=== PATIENT | female | born 1950 | race Caucasian/White ===

== ENCOUNTER 2018-06-25 12:23 | Outpatient (REF) | payer MEDICARE, SELFPAY ==
[2018-06-25 21:23] LABS: Anion Gap 10.3 mmol/L (3-11); BUN 18 mg/dL (7-18); CO2 27.7 mmol/L (21.0-32.0); CREATININE 0.99 mg/dL (0.55-1.02); Calcium 9.1 mg/dL (8.5-10.1); Chloride 98 mmol/L (98-107); Estimated GFR 55.61 (mL/min/1.73m2); Glucose 79 mg/dL (70-100); Potassium 4.3 mmol/L (3.5-5.1); Sodium 136 mmol/L (136-145); TSH (W/Ref FT4) 20.32 uIU/mL (0.358-3.74); Uric Acid 5.3 mg/dL (2.6-6.0)
[2018-06-25 21:49] LABS: FREE T4 1.03 ng/dL (0.76-1.46)
== END 2018-06-25 12:43 ==
LOC: NCHCN 12:23
PROVIDERS: PCP Family Medicine; Visit Provider Family Medicine
DX: I10 Essential (primary) hypertension (principal); E03.9 Hypothyroidism, unspecified
CPT/HCPCS: 80048; 84439; 84443; 84550

== ENCOUNTER 2018-08-06 20:23 | Outpatient (REF) | payer MEDICARE, OTHER, SELFPAY ==
[2018-08-06 21:08] LABS: TSH (W/Ref FT4) 3.48 uIU/mL (0.358-3.74)
== END 2018-08-06 20:43 ==
LOC: NCHCN 20:23
PROVIDERS: PCP Family Medicine; Visit Provider Family Medicine
DX: E03.9 Hypothyroidism, unspecified (principal)
CPT/HCPCS: 84443

== ENCOUNTER 2018-12-10 12:09 | Outpatient (REF) | payer MEDICARE, OTHER, SELFPAY ==
[2018-12-10 21:21] LABS: TSH (W/Ref FT4) 0.15 uIU/mL (0.358-3.74)
[2018-12-10 21:38] LABS: FREE T4 1.35 ng/dL (0.76-1.46)
== END 2018-12-10 12:29 ==
LOC: NCHCN 12:09
PROVIDERS: PCP Family Medicine; Visit Provider Family Medicine
DX: E03.9 Hypothyroidism, unspecified (principal)
CPT/HCPCS: 84439; 84443

== ENCOUNTER 2018-12-23 22:17 | Outpatient (REF) | payer MEDICARE, OTHER, SELFPAY | END 2018-12-23 22:37 | LOC: NCHCN 22:17 | PROVIDERS: PCP Family Medicine; Visit Provider Family Medicine | DX: R30.0 Dysuria (principal) | CPT/HCPCS: 87086 ==

== ENCOUNTER 2019-02-03 22:19 | Outpatient (REF) | payer MEDICARE, OTHER, SELFPAY ==
[2019-02-03 23:06] LABS: Cholesterol 262 mg/dL (50-200); HDL Cholesterol 112 mg/dL (40-60); LDL CHOLESTEROL 123 mg/dL (<100); Triglyceride 76 mg/dL (30-150)
[2019-02-03 23:15] LABS: ALT 23 U/L (12-78); AST 20 U/L (15-37); Albumin 4.3 g/dL (3.4-5.0); Alkaline Phosphatase 49 U/L (46-116); Anion Gap 9.1 mmol/L (3-11); BUN 17 mg/dL (7-18); Bilirubin, Total 0.3 mg/dL (0.2-1.0); CO2 26.9 mmol/L (21.0-32.0); Calcium 8.9 mg/dL (8.5-10.1); Chloride 102 mmol/L (98-107); Estimated GFR 54.81 (mL/min/1.73m2); Glucose 86 mg/dL (70-100); Potassium 4.3 mmol/L (3.5-5.1); Sodium 138 mmol/L (136-145); TSH (W/Ref FT4) 1.37 uIU/mL (0.358-3.74); Total Protein 7.1 g/dL (6.4-8.2)
== END 2019-02-03 22:39 ==
LOC: NCHCN 22:19
PROVIDERS: PCP Family Medicine; Visit Provider Family Medicine
DX: E03.9 Hypothyroidism, unspecified (principal); I10 Essential (primary) hypertension; R19.4 Change in bowel habit
CPT/HCPCS: 80053; 80061; 83721; 84443

== ENCOUNTER 2019-09-12 18:04 | Outpatient (REF) | payer MEDICARE, OTHER, SELFPAY ==
[2019-09-12 21:45] LABS: TSH 0.07 uIU/mL (0.36-3.74)
[2019-09-14 11:49] LABS: Lyme Ab w Rflx to Lyme Confirm Negative (Negative)
== END 2019-09-12 18:24 ==
LOC: NCHCN 18:04
PROVIDERS: PCP Family Medicine; Visit Provider Registered Nurse
DX: E03.9 Hypothyroidism, unspecified (principal); M19.90 Unspecified osteoarthritis, unspecified site
CPT/HCPCS: 84443; 86618

== ENCOUNTER 2019-10-25 11:17 | Outpatient (REF) | payer MEDICARE, OTHER, SELFPAY ==
[2019-10-25 22:25] LABS: TSH (W/Ref FT4) 0.14 uIU/mL (0.36-3.74)
[2019-10-25 22:43] LABS: FREE T4 1.21 ng/dL (0.76-1.46)
== END 2019-10-25 11:37 ==
LOC: NCHCN 11:17
PROVIDERS: PCP Family Medicine; Visit Provider Registered Nurse
DX: E03.9 Hypothyroidism, unspecified (principal)
CPT/HCPCS: 84439; 84443

== ENCOUNTER 2019-12-21 16:14 | Outpatient (REF) | payer MEDICARE, OTHER, SELFPAY ==
[2019-12-21 22:58] LABS: TSH (W/Ref FT4) 0.14 uIU/mL (0.36-3.74)
[2019-12-21 23:19] LABS: FREE T4 1.39 ng/dL (0.76-1.46)
== END 2019-12-21 16:34 ==
LOC: NCHCN 16:14
PROVIDERS: PCP Family Medicine; Visit Provider Registered Nurse
DX: E03.9 Hypothyroidism, unspecified (principal)
CPT/HCPCS: 84439; 84443

== ENCOUNTER 2020-02-17 12:43 | Outpatient (REF) | payer MEDICARE, OTHER, SELFPAY ==
[2020-02-17 20:57] LABS: Hemoglobin A1C 5.9 % (3.8-5.6)
== END 2020-02-17 13:03 ==
LOC: NCHCN 12:43
PROVIDERS: PCP Family Medicine; Visit Provider Registered Nurse
DX: E03.9 Hypothyroidism, unspecified (principal); R73.03 Prediabetes
CPT/HCPCS: 83036; 84443

== ENCOUNTER 2020-04-24 22:22 | Outpatient (REF) | payer MEDICARE, OTHER, SELFPAY | END 2020-04-24 22:42 | LOC: NCHCN 22:22 | PROVIDERS: PCP Family Medicine; Visit Provider Family Medicine | DX: R35.0 Frequency of micturition (principal) | CPT/HCPCS: 87086 ==

== ENCOUNTER 2020-06-01 16:07 | Outpatient (REF) | payer MEDICARE, OTHER, SELFPAY ==
[2020-06-01 22:36] LABS: HCT 35.4 % (36.0-46.0); HGB 11.8 g/dL (11.2-15.7); MCH 31.5 pg (27.0-33.0); MCHC 33.3 % (32.0-36.0); MCV 94.4 fL (80-95); MPV 10.9 fL (8.0-11.0); Platelet Count 227 10^3/uL (130-400); RBC 3.75 10^6/uL (3.93-5.22); RDW 12.2 % (11.7-14.6); RDW-SD 42.2 fL
[2020-06-01 23:00] LABS: TSH (W/Ref FT4) 3.24 uIU/mL (0.36-3.74)
[2020-06-04 15:54] LABS: ALT 20 U/L (14-59); AST 17 U/L (15-37); Alkaline Phosphatase 35 U/L (46-116); Anion Gap 4.7 mmol/L (3-11); BUN 20 mg/dL (7-18); Bilirubin, Total 0.2 mg/dL (0.2-1.0); CO2 27.3 mmol/L (21.0-32.0); CREATININE 0.98 mg/dL (0.55-1.02); Calcium 9.2 mg/dL (8.5-10.1); Chloride 99 mmol/L (98-107); Estimated GFR 55.95 (mL/min/1.73m2); Ferritin 40 ng/mL (8-252); Glucose 94 mg/dL (74-106); Potassium 4.2 mmol/L (3.5-5.1); Sodium 131 mmol/L (136-145); Total Protein 6.6 g/dL (6.4-8.2)
[2020-06-04 15:56] LABS: Iron 80 ug/dL (50-170); Total Iron Binding Capacity 246 ug/dL (250-450); Transferrin Sat 33 % (15-50)
== END 2020-06-01 16:27 ==
LOC: NCHCN 16:07
PROVIDERS: PCP Nurse Practitioner Family; Visit Provider Nurse Practitioner Family
DX: R53.83 Other fatigue (principal); R63.4 Abnormal weight loss; I10 Essential (primary) hypertension; R71.8 Other abnormality of red blood cells
CPT/HCPCS: 80053; 85027; 82728; 83540; 83550; 84443

== ENCOUNTER 2020-06-20 08:39 | Outpatient (REF) | payer MEDICARE, OTHER, SELFPAY ==
[2020-06-20 20:58] LABS: Folate 8.4 ng/mL (8.6-20.0); Vitamin B12 492 pg/mL (193-986)
== END 2020-06-20 08:59 ==
LOC: NCHCN 08:39
PROVIDERS: PCP Nurse Practitioner Family; Visit Provider Registered Nurse
DX: R53.83 Other fatigue (principal); R63.4 Abnormal weight loss
CPT/HCPCS: 82607; 82746

== ENCOUNTER 2020-06-28 15:04 | Outpatient (REF) | payer MEDICARE, OTHER, SELFPAY ==
[2020-06-28 21:31] LABS: HCT 37.3 % (36.0-46.0); HGB 12.2 g/dL (11.2-15.7); MCH 31.4 pg (27.0-33.0); MCHC 32.7 % (32.0-36.0); MCV 95.9 fL (80-95); MPV 10.9 fL (8.0-11.0); Platelet Count 177 10^3/uL (130-400); RBC 3.89 10^6/uL (3.93-5.22); RDW 12.2 % (11.7-14.6); RDW-SD 43.2 fL; WBC 7.85 10^3/uL (4.4-10.8)
[2020-06-28 21:38] LABS: Anion Gap 9.2 mmol/L (3-11); BUN 15 mg/dL (7-18); CO2 27.8 mmol/L (21.0-32.0); CREATININE 1.45 mg/dL (0.55-1.02); Calcium 9.3 mg/dL (8.5-10.1); Chloride 99 mmol/L (98-107); Glucose 97 mg/dL (74-106); Potassium 4.3 mmol/L (3.5-5.1); Sodium 136 mmol/L (136-145)
== END 2020-06-28 15:24 ==
LOC: NCHCN 15:04
PROVIDERS: PCP Nurse Practitioner Family; Visit Provider Registered Nurse
DX: E87.1 Hypo-osmolality and hyponatremia (principal); D64.9 Anemia, unspecified
CPT/HCPCS: 80048; 85027

== ENCOUNTER 2020-07-06 09:41 | Outpatient (REF) | payer MEDICARE, OTHER, SELFPAY ==
[2020-07-06 22:02] LABS: BUN 15 mg/dL (7-18); CREATININE 1.05 mg/dL (0.55-1.02); Estimated GFR 51.52 (mL/min/1.73m2)
== END 2020-07-06 10:01 ==
LOC: NCHCN 09:41
PROVIDERS: PCP Nurse Practitioner Family; Visit Provider Registered Nurse
DX: R73.03 Prediabetes (principal)
CPT/HCPCS: 84520; 82565

== ENCOUNTER 2021-05-10 09:45 | Outpatient (REF) | payer MEDICARE, OTHER, SELFPAY ==
[2021-05-10 15:34] LABS: HCT 39.2 % (36.0-46.0); HGB 12.8 g/dL (11.2-15.7); MCH 31.3 pg (27.0-33.0); MCHC 32.7 % (32.0-36.0); MCV 95.8 fL (80-95); MPV 11.3 fL (8.0-11.0); Platelet Count 166 10^3/uL (130-400); RBC 4.09 10^6/uL (3.93-5.22); RDW 12.3 % (11.7-14.6); RDW-SD 43.2 fL; WBC 7.29 10^3/uL (4.4-10.8)
[2021-05-10 17:01] LABS: Anion Gap 6.8 mmol/L (3-11); BUN 17 mg/dL (7-18); CO2 29.2 mmol/L (21.0-32.0); CREATININE 0.9 mg/dL (0.55-1.02); Calcium 9.4 mg/dL (8.5-10.1); Chloride 104 mmol/L (98-107); Glucose 63 mg/dL (74-106); Potassium 4.4 mmol/L (3.5-5.1); Sodium 140 mmol/L (136-145); TSH 7.13 uIU/mL (0.36-3.74)
== END 2021-05-10 09:46 | disposition home or self-care (01) ==
LOC: NCHCN 09:45
PROVIDERS: PCP Nurse Practitioner Family; Visit Provider Registered Nurse
DX: R53.83 Other fatigue (principal); N18.31 Chronic kidney disease, stage 3a
CPT/HCPCS: 80048; 85027; 84443

== ENCOUNTER 2021-07-17 14:41 | Outpatient (REF) | payer MEDICARE, OTHER, SELFPAY ==
--- OUTSIDE RECORDS SUMMARY | 2021-07-17 14:47 | XMS_ITS | CCD ---
:1950 Author Care Team Providers Name Role Phone MD NORA Attending Physician Unavailable Vital Signs Unknown or Not Available. Allergies Allergy Code Allergy Type Reaction Status SULFA (sulfonamide) 0 Drug allergy Active Procedures Unknown or Not Available. History of Immunizations Unknown or Not Available. Problems Unknown or Not Available. Results [facility] - Collect Date/Time : 05/30/2021 11:07 Test Name Code Test Result Test Units Test Ref Range SOURCE= Anterior nasal N/A Tier- SYMPTOMS N/A SARS COV2 RNA: 33285-9 NEGATIVE N/A REFERENCE RAN GE: NEGAT Active Medications Unknown or Not Available. Medications Administered During Visit Unknown or Not Available. Encounters Encounter Diagnosis Diagnosis Code Start Date CONTACT WITH AND SUSPECTED EXPOSURE TO COVID-19 [id number] 05/30/2021 Social History Smoking Status Code Start Date End Date Never smoker [id number] Patient Decision Aids Unknown or Not Available. Discharge Instructions You were admitted to [facility] on 05/30/2021 23:23 with a principal diagnosis of Contact with and (suspected ) exposure to COVID-19 You had the following [facility] were [facility] from [facility] on 05/30/2021 23:23 Should you have any questions prior to d ischarge, please contact a member of your healthcare team. If you have left the spital and have any questions, please contact your primary care physician. Chief Complaint and Reason For Visit Unknown or Not Available. Function Status Unknown or Not Available. Plan of Care Unknown or Not Available. Referral/Transition of Care Unknown or Not Available.
[2021-07-17 21:05] LABS: Calculated LDL 116 mg/dL (<100); Cholesterol 240 mg/dL (<200); HDL Cholesterol 106 mg/dL (40-60); TSH 0.25 uIU/mL (0.36-3.74); Triglyceride 93 mg/dL (<150)
[2021-07-19 09:48] LABS: FREE T4 1.23 ng/dL (0.76-1.46)
== END 2021-07-17 14:42 | disposition home or self-care (01) ==
LOC: NCHCN 14:41
PROVIDERS: PCP Nurse Practitioner Family; Visit Provider Registered Nurse
DX: E03.9 Hypothyroidism, unspecified (principal); Z13.9 Encounter for screening, unspecified; Z13.220 Encounter for screening for lipoid disorders
CPT/HCPCS: 80061; 84439; 84443

== ENCOUNTER 2021-09-24 13:48 | Outpatient (REF) | payer MEDICARE, OTHER, SELFPAY ==
[2021-09-24 15:08] LABS: ALT 21 U/L (14-59); AST 18 U/L (15-37); Albumin 3.8 g/dL (3.4-5.0); Alkaline Phosphatase 43 U/L (46-116); Anion Gap 7.6 mmol/L (3-11); BUN 22 mg/dL (7-18); Bilirubin, Total 0.3 mg/dL (0.2-1.0); CO2 28.4 mmol/L (21.0-32.0); Calcium 9.3 mg/dL (8.5-10.1); Chloride 103 mmol/L (98-107); Estimated GFR 54.35 (mL/min/1.73m2); Glucose 92 mg/dL (74-106); Potassium 4.4 mmol/L (3.5-5.1); Sodium 139 mmol/L (136-145); TSH (W/Ref FT4) 0.02 uIU/mL (0.36-3.74); Total Protein 6.6 g/dL (6.4-8.2)
[2021-09-24 15:29] LABS: FREE T4 1.37 ng/dL (0.76-1.46)
== END 2021-09-24 13:49 | disposition home or self-care (01) ==
LOC: NCHCN 13:48
PROVIDERS: PCP Nurse Practitioner Family; Visit Provider Family Medicine
DX: E03.9 Hypothyroidism, unspecified (principal); R10.9 Unspecified abdominal pain
CPT/HCPCS: 80053; 84439; 84443

== ENCOUNTER 2021-11-18 19:07 | Outpatient (REF) | payer MEDICARE, SELFPAY ==
[2021-11-18 16:43] LABS: C Diff PCR Negative (Negative)
[2021-11-20 13:12] LABS: Helicobacter pylori Ag, Feces Negative (Negative)
== END 2021-11-18 19:08 | disposition home or self-care (01) ==
LOC: NCHCN 19:07
PROVIDERS: PCP Nurse Practitioner Family; Visit Provider Nurse Practitioner Family
DX: R19.7 Diarrhea, unspecified (principal); R10.9 Unspecified abdominal pain
CPT/HCPCS: 87329; 87338; 87493

== ENCOUNTER 2021-12-30 08:33 | Outpatient (REF) | payer MEDICARE, SELFPAY ==
[2021-12-30 21:43] LABS: Calculated LDL 120 mg/dL (<100); Cholesterol 242 mg/dL (<200); HDL Cholesterol 115 mg/dL (40-60); TSH 0.03 uIU/mL (0.36-3.74); Triglyceride 37 mg/dL (<150)
== END 2021-12-30 08:34 | disposition home or self-care (01) ==
LOC: NCHCN 08:33
PROVIDERS: PCP Nurse Practitioner Family; Visit Provider Registered Nurse
DX: E78.5 Hyperlipidemia, unspecified (principal); E03.9 Hypothyroidism, unspecified
CPT/HCPCS: 80061; 84443

== ENCOUNTER 2022-02-24 10:10 | Outpatient (REF) | payer MEDICARE, SELFPAY ==
[2022-02-24 17:22] LABS: TSH 0.14 uIU/mL (0.36-3.74)
== END 2022-02-24 10:11 | disposition home or self-care (01) ==
LOC: NCHCN 10:10
PROVIDERS: PCP Nurse Practitioner Family; Visit Provider Registered Nurse
DX: E03.9 Hypothyroidism, unspecified (principal)
CPT/HCPCS: 84443

== ENCOUNTER 2022-06-02 15:47 | Outpatient (REF) | payer MEDICARE, SELFPAY ==
[2022-06-02 18:04] LABS: TSH 0.81 uIU/mL (0.36-3.74)
== END 2022-06-02 15:48 | disposition home or self-care (01) ==
LOC: NCHCN 15:47
PROVIDERS: PCP Nurse Practitioner Family; Visit Provider Registered Nurse
DX: E03.9 Hypothyroidism, unspecified (principal)
CPT/HCPCS: 84443

== ENCOUNTER 2022-06-27 19:36 | Outpatient (REF) | payer MEDICARE, SELFPAY ==
[2022-06-27 16:10] LABS: Abs Immature Grans 0.01 10^3/uL (0.0-0.06); Absolute Basophil Count 0.06 10^3/uL (0.0-0.2); Absolute Lymphocyte Count 1.57 10^3/uL (1.2-3.4); Absolute Monocyte Count 0.46 10^3/uL (0.1-0.8); Absolute Neutrophil Count 2.54 10^3/uL (1.2-6.7); Basophils % 1.2; Eosinophils % 6.1; HCT 40.2 % (36.0-46.0); Immature Grans % 0.2; Lymphocytes % 31.8; MCH 32.2 pg (27.0-33.0); MCHC 34.8 % (32.0-36.0); MCV 92 fL (80-95); MPV 11.4 fL (8.0-11.0); Monocytes % 9.3; Neutrophils % 51.4; Platelet Count 173 10^3/uL (130-400); RBC 4.35 10^6/uL (3.93-5.22); RDW 11.9 % (11.7-14.6); RDW-SD 40.8 fL; WBC 4.94 10^3/uL (4.4-10.8)
[2022-06-27 16:21] LABS: ALT 25 U/L (14-59); AST 28 U/L (15-37); Albumin 4.5 g/dL (3.4-5.0); Alkaline Phosphatase 52 U/L (46-116); Anion Gap 7.9 mmol/L (3-11); BUN 13 mg/dL (7-18); Bilirubin, Total 0.3 mg/dL (0.2-1.0); CO2 29.1 mmol/L (21.0-32.0); CREATININE 0.9 mg/dL (0.55-1.02); Calcium 9.9 mg/dL (8.5-10.1); Chloride 102 mmol/L (98-107); Glucose 97 mg/dL (74-106); Potassium 4.6 mmol/L (3.5-5.1); Sodium 139 mmol/L (136-145); Total Protein 8.1 g/dL (6.4-8.2)
== END 2022-06-27 19:37 | disposition home or self-care (01) ==
LOC: NCHCN 19:36
PROVIDERS: PCP Nurse Practitioner Family; Visit Provider Registered Nurse
DX: R63.4 Abnormal weight loss (principal)
CPT/HCPCS: 80053; 85025

== ENCOUNTER 2022-09-11 16:08 | Outpatient (REF) | payer MEDICARE, SELFPAY ==
[2022-09-11 15:32] LABS: TSH 0.37 uIU/mL (0.36-3.74)
== END 2022-09-11 16:09 | disposition home or self-care (01) ==
LOC: NCHCN 16:08
PROVIDERS: PCP Nurse Practitioner Family; Visit Provider Registered Nurse
DX: E03.9 Hypothyroidism, unspecified (principal)
CPT/HCPCS: 84443

== ENCOUNTER 2023-05-05 10:54 | Outpatient (REF) | payer MEDICARE, SELFPAY ==
[2023-05-05 15:34] LABS: Anion Gap 6.2 mmol/L (3-11); BUN 13 mg/dL (7-18); CO2 27.8 mmol/L (21.0-32.0); CREATININE 0.9 mg/dL (0.55-1.02); Chloride 102 mmol/L (98-107); Estimated GFR 67.08 (mL/min/1.73m2); Glucose 96 mg/dL (74-106); Potassium 4.5 mmol/L (3.5-5.1); Sodium 136 mmol/L (136-145); TSH 0.32 uIU/mL (0.36-3.74)
== END 2023-05-05 10:55 | disposition home or self-care (01) ==
LOC: NCHCN 10:54
PROVIDERS: PCP Nurse Practitioner Family; Visit Provider Registered Nurse
DX: I10 Essential (primary) hypertension (principal); E03.9 Hypothyroidism, unspecified
CPT/HCPCS: 80048; 84443

== ENCOUNTER 2023-07-08 13:55 | Outpatient (REF) | payer MEDICARE, SELFPAY ==
[2023-07-08 16:18] LABS: TSH 1.22 uIU/mL (0.36-3.74)
[2023-07-08 19:05] LABS: Vitamin D 25 Total 66.9 ng/mL (30-100)
== END 2023-07-08 13:56 | disposition home or self-care (01) ==
LOC: NCHCN 13:55
PROVIDERS: PCP Nurse Practitioner Family; Visit Provider Internal Medicine
DX: E03.9 Hypothyroidism, unspecified (principal); M81.0 Age-related osteoporosis without current pathological fracture
CPT/HCPCS: 82306; 84443

== ENCOUNTER 2023-12-15 22:01 | Outpatient (REF) | payer MEDICARE, SELFPAY ==
[2023-12-15 14:48] LABS: TSH 0.41 uIU/Ml (0.36-3.74)
== END 2023-12-15 22:02 | disposition home or self-care (01) ==
LOC: NCHCN 22:01
PROVIDERS: PCP Nurse Practitioner Family; Referring Provider Internal Medicine; Visit Provider Internal Medicine
DX: E03.9 Hypothyroidism, unspecified (principal)
CPT/HCPCS: 84443

== ENCOUNTER 2024-06-20 13:33 | Outpatient (REF) | payer MEDICARE, SELFPAY ==
[2024-06-20 14:41] LABS: HCT 39.9 % (36.0-46.0); HGB 13.2 g/dL (11.2-15.7); MCHC 33.1 % (32.0-36.0); MCV 97 fL (80-95); MPV 10.2 fL (8.0-11.0); Platelet Count 193 10^3/uL (130-400); RBC 4.12 10^6/uL (3.93-5.22); RDW 12.6 % (11.7-14.6); RDW-SD 44.6 fL
[2024-06-20 15:07] LABS: ALT 27 U/L (14-59); AST 28 U/L (15-37); Albumin 3.8 g/dL (3.4-5.0); Alkaline Phosphatase 41 U/L (46-116); Anion Gap 5.2 mmol/L (3-11); BUN 10 mg/dL (7-18); Bilirubin, Total 0.42 mg/dL (0.2-1.0); CO2 29.8 mmol/L (21.0-32.0); CREATININE 0.8 mg/dL (0.55-1.02); Calculated LDL 121 mg/dL (<100); Chloride 104 mmol/L (98-107); Cholesterol 267 mg/dL (<200); Estimated GFR 76.79 (mL/min/1.73m2); Glucose 84 mg/dL (74-106); HDL Cholesterol 138 mg/dL (40-60); Potassium 4.4 mmol/L (3.5-5.1); Sodium 139 mmol/L (136-145); TSH 4.95 uIU/Ml (0.36-3.74); Total Protein 6.5 g/dL (6.4-8.2); Triglyceride 40 mg/dL (<150)
== END 2024-06-20 13:34 | disposition home or self-care (01) ==
LOC: NCHCN 13:33
PROVIDERS: PCP Nurse Practitioner Family; Visit Provider Internal Medicine
DX: I10 Essential (primary) hypertension (principal); E78.5 Hyperlipidemia, unspecified; E03.9 Hypothyroidism, unspecified
CPT/HCPCS: 80053; 80061; 85027; 84443

== ENCOUNTER 2024-08-23 13:01 | Outpatient (REF) | payer MEDICARE, SELFPAY ==
[2024-08-23 15:10] LABS: TSH 0.62 uIU/mL (0.36-3.74)
== END 2024-08-23 13:02 | disposition home or self-care (01) ==
LOC: NCHCN 13:01
PROVIDERS: PCP Nurse Practitioner Family; Visit Provider Internal Medicine
DX: E03.9 Hypothyroidism, unspecified (principal)
CPT/HCPCS: 84443

== ENCOUNTER 2024-12-22 18:24 | Outpatient (REF) | payer MEDICARE, SELFPAY ==
[2024-12-22 21:35] LABS: Anion Gap 8.8 mmol/L (3-11); BUN 18 mg/dL (7-18); CO2 27.2 mmol/L (21.0-32.0); CREATININE 0.9 mg/dL (0.55-1.02); Calcium 9.6 mg/dL (8.5-10.1); Chloride 105 mmol/L (98-107); Estimated GFR 66.26 (mL/min/1.73m2); Glucose 81 mg/dL (74-106); Potassium 4.3 mmol/L (3.5-5.1); Sodium 141 mmol/L (136-145)
== END 2024-12-22 18:25 | disposition home or self-care (01) ==
LOC: NCHCN 18:24
PROVIDERS: PCP Nurse Practitioner Family; Visit Provider Internal Medicine
DX: M81.0 Age-related osteoporosis without current pathological fracture (principal)
CPT/HCPCS: 80048

== ENCOUNTER 2025-08-17 09:45 | Outpatient (REF) | payer MEDICARE, SELFPAY ==
[2025-08-17 15:09] LABS: HCT 38.7 % (36.0-46.0); HGB 12.8 g/dL (11.2-15.7); MCH 31.8 pg (27.0-33.0); MCHC 33.1 % (32.0-36.0); MCV 96 fL (80-95); RBC 4.03 10^6/uL (3.93-5.22); RDW 12.4 % (11.7-14.6); RDW-SD 43.9 fL; WBC 5.35 10^3/uL (4.4-10.8)
[2025-08-17 15:44] LABS: Anion Gap 8.7 mmol/L (3-11); BUN 17 mg/dL (7-18); CO2 29.3 mmol/L (21.0-32.0); Calcium 8.8 mg/dL (8.5-10.1); Chloride 100 mmol/L (98-107); Cholesterol 212 mg/dL (<200); Glucose 72 mg/dL (74-106); HDL Cholesterol 124 mg/dL (>or=50); Potassium 3.9 mmol/L (3.5-5.1); Sodium 138 mmol/L (136-145); TSH 0.86 uIU/mL (0.36-3.74)
== END 2025-08-17 09:46 | disposition home or self-care (01) ==
LOC: NCHCN 09:45
PROVIDERS: PCP Nurse Practitioner Family; Visit Provider Internal Medicine
DX: E03.9 Hypothyroidism, unspecified (principal); I10 Essential (primary) hypertension; E78.5 Hyperlipidemia, unspecified
CPT/HCPCS: 80048; 80061; 85027; 84443

== ENCOUNTER 2025-08-21 14:32 | Outpatient (REF) | payer MEDICARE, SELFPAY ==
[2025-08-21 16:04] LABS: Microalb ug/mg Crea 58.6 ug/mg Cr
== END 2025-08-21 14:33 | disposition home or self-care (01) ==
LOC: NCHCN 14:32
PROVIDERS: PCP Nurse Practitioner Family; Visit Provider Internal Medicine
DX: I10 Essential (primary) hypertension (principal)
CPT/HCPCS: 82043; 82570